=== PATIENT | female | born 1980 | race Caucasian/White ===

== ENCOUNTER 2018-10-02 00:53 | Emergency (ER) | payer OTHER ==
[2018-10-02] MEDS ORDERED: IPRATROPIUM/ALBUTEROL 3 ML NEB INH STA (01:08)
[2018-10-02] MEDS ORDERED: IBUPROFEN 800 MG TABLET PO STA (01:09)
--- NOTE | 2018-10-02 01:47 | ED Physician Documentation ---
PD HPI DYSPNEA - Stated complaint Stated Complaint: SOA - Chief complaint Chief Complaint: Resp - History obtained from History obtained from: Patient, Family () - History of Present Illness Timing - onset: How many hours ago (4) Timing - details: Waxing and waning Inciting event(s): Immobilization/travel Worsened by: Coughing Associated symptoms: Cough Similar symptoms before: Diagnosis (h/o asthma.) - Treatment prior to arrival Treatment prior to arrival: Albuterol inhaler helped temporarily. - Additional information Additional information: The patient is a 37-year-old female with history of asthma, who presents complaining of difficulty breathing. Her symptoms started 4 hours prior to arrival while on an airplane flight from [place]. She used albuterol inhaler which provided temporary relief, but her symptoms returned while driving from the airport to the [facility]. Her symptoms are exacerbated by coughing. She denies chest pain or fever. Review of Systems Constitutional: denies: Fever Throat: denies: Sore throat Cardiac: denies: Chest pain / pressure Respiratory: reports: Dyspnea, Cough GI: denies: Abdominal Pain, Nausea, Vomiting : denies: Dysuria Skin: denies: Rash Musculoskeletal: denies: Back pain, Extremity pain Neurologic: reports: Headache. denies: Focal weakness, Numbness PD PAST MEDICAL HISTORY - Past Medical History Cardiovascular: None Respiratory: Asthma Endocrine/Autoimmune: None - Present Medications Home Medications: Ambulatory Orders Medication Instructions Recorded Confirmed Benzonatate [Tessalon Perle] 100 - 200 mg PO TID PRN #20 capsule 10/02/18 Modafinil [Provigil] 100 mg PO QDLUNCH 10/02/18 10/02/18 Modafinil [Provigil] 200 mg PO QDBREAKFAST 10/02/18 10/02/18 - Allergies Allergies/Adverse Reactions: Allergies Allergy/AdvReac Type Severity Reaction Status Date / Time Iodinated Contrast- Oral and Allergy Anaphylaxis Verified 10/02/18 02:31 IV Dye Iodine and Iodide Containing Allergy Anaphylaxis Verified 10/02/18 02:32 Produc shellfish Allergy Anaphylaxis Uncoded 10/02/18 02:28 walnut Allergy Anaphylaxis Uncoded 10/02/18 02:28 PD ED PE NORMAL - Vitals Vital signs reviewed: Yes (Initially tachycardic.) - General General: Alert and oriented X 3, Well developed/nourished, Other (Coughing and tearful.) - HEENT HEENT: Atraumatic, Pharynx benign - Neck Neck: No adenopathy, No JVD - Cardiac Cardiac: No murmur, Other (Rapid rate, regular rhythm.) - Respiratory Respiratory: Other (Breath sounds are diminished on the left compared to the right. Faint wheezing noted.) - Abdomen Abdomen: Soft, Non tender - Back Back: No CVA TTP - Derm Derm: No rash - Extremities Extremities: No edema, No calf tenderness / cord - Neuro Neuro: Alert and oriented X 3, Normal speech Results - Vitals Vitals: Vital Signs - 24 hr 10/02/18 10/02/18 10/02/18 01:19 01:33 02:43 Temperature 36.9 C Heart Rate 112 H 123 H 99 Respiratory 22 30 H 18 Rate Blood Pressure 147/82 H 121/82 H O2 Saturation 100 97 Oxygen O2 Source Room air - Labs Labs: Laboratory Tests 10/02/18 01:15 D-Dimer < 200.0 L - Rads (name of study) CXR Radiology: Prelim report reviewed, EMP read contemporaneously, See rad report (No acute abnormality seen in the chest.) PD MEDICAL DECISION MAKING - ED course Complexity details: reviewed results, re-evaluated patient, considered differential, d/w patient, d/w family ED course: The patient's presentation is most consistent with bronchospasm. Her presentation does not suggest pneumonia, and her chest x-ray reveals no acute abnormality. There is no evidence of pneumothorax. Pulmonary embolus is unlikely with a normal d-dimer. Treatment in the emergency department included administration of DuoNeb nebulizer, which improved the patient's symptoms. Ibuprofen 800 mg was administered orally. She continued to complain of headache, so Vicodin 1 tablet was administered orally. She is being discharged with prescription for Tessalon Perles. I discussed with her and her the results of her workup, symptomatic treatment and outpatient follow-up, as well as potentially worrisome signs or symptoms that should prompt reevaluation in the emergency department. Departure - Departure Disposition: 01 Home, Self Care Clinical Impression: Dyspnea Qualifiers: Dyspnea type: shortness of breath Qualified Code(s): R06.02 - Shortness of breath Condition: Stable Instructions: ED Dyspnea Shortness of Breath Follow-Up: PETER Melgar [Provider Group] Prescriptions: Benzonatate [Tessalon Perle] 100 - 200 mg PO TID PRN #20 capsule PRN Reason: Cough Comments: Use your albuterol inhaler as previously prescribed. You can use Tessalon Perles as prescribed if needed for cough. Follow-up with your primary physician within 1 week. Call to schedule an appointment. Return to the emergency department if you develop increasing difficulty breathing, or otherwise worsening symptoms.
--- NOTE | 2018-10-02 02:05 | XRAY Report ---
Reason: dyspnea Procedure Date: 10/02/2018 Accession Number: [id number] / [id number] Procedure: XR - Chest 2 View X-Ray CPT Code: 51778 FULL RESULT: EXAM: CHEST RADIOGRAPHY EXAM DATE: 10/02/2018 01:58 AM. CLINICAL HISTORY: Dyspnea. COMPARISON: None. TECHNIQUE: 2 views. FINDINGS: Lungs/Pleura: No alveolar consolidation or pleural effusion seen. No pneumothorax. Mediastinum: Heart and mediastinal contours are unremarkable. Other: Status post cholecystectomy. IMPRESSION: 1. No acute abnormality seen in the chest. RADIA
[2018-10-02] MEDS ORDERED: HYDROcod/ACETAM 5/325 MG TABLET PO STA (02:18)
[2018-10-02 02:44] VITALS: BP 121/82
== END 2018-10-02 02:55 | disposition home or self-care (01) ==
LOC: ED 00:53
DX: R06.02 Shortness of breath (principal)
CPT/HCPCS: 71046; 85379; 94640; 94664; 99283; A9270

== ENCOUNTER 2022-11-24 07:35 | Outpatient (CLI) | payer OTHER ==
--- NOTE | 2022-11-24 10:19 | Mammography Report ---
UNILATERAL RIGHT DIGITAL DIAGNOSTIC MAMMOGRAM 3D/2D WITH SPOT COMPRESSION: 11/24/2022 CLINICAL: Palpable right breast lump. Comparison is made to exam dated: 08/11/2022 mammogram - [facility]. The right breast is heterogeneously dense, which may obscure small masses (category c / 51-75% glandu lar tissue). There is a stable focal asymmetry in the right breast at 12 o'clock anterior depth. This is adjacent to the palpable marker. No other significant masses or calcifications are seen in the breast. IMPRESSION: INCOMPLETE: NEEDS ADDITIONAL IMAGING EVALUATION The stable focal asymmetry in the right breast is indeterminate. An ultrasound is recommended. Based on the Tyrer Cuzick model (a risk assessment model) the patients lifetime risk is 11.3% and he r 10 year risk is 1.7%. According to the ACR, ACS, and NCCN guidelines, an annual breast MRI exam tahir ng with mammogram is recommended if the patients lifetime risk is 20% or greater. This exam was interpreted at Station ID: [id number]. NOTE: For mammograms, a report in lay terms will be sent to the patient. Approximately 15% of breast malignancies will not be visualized mammographically. In the management of a palpable breast mass, a negative mammogram must not discourage biopsy of a clinically suspicious lesion. Electronically Signed By: Nestor Samuels M.D. lc/:11/24/2022 09:27:26 ACR BI-RADS Category 0: Incomplete 3340F PARENCHYMAL PATTERN: (D) - The breast(s) demonstrate(s) heterogeneously dense fibroglandular parmailey ma. BI-RADS CATEGORY: (0) - 0 Ultrasound [id number] Immediate follow-up LATERALITY: (B)
--- NOTE | 2022-11-24 10:19 | Ultrasound Report ---
LIMITED ULTRASOUND OF RIGHT BREAST: 11/24/2022 CLINICAL: Palpable right breast lump. Comparison is made to exams dated: 11/24/2022 mammogram - and 08/11/2022 m ammogram - [facility]. Color flow ultrasound of the right breast 12 o'clock region was performed. Catherine scale images of the real-time examination were reviewed. No significant abnormalities were seen sonographically in the right breast. IMPRESSION: PROBABLY BENIGN There is no sonographic abnormality seen in the right breast to correspond with the area of clinical concern at 12:00 4cm from the nipple and the stable focal asymmetry on mammography. The focal asymmetry on mammography is probably benign, stable compared to 08/11/2022, seen adjacent to the palpable marker. A 6 month mammogram is recommended for followup. Patient was advised that she can return sooner than 6months for re-evaluation if the palpable area of clinical concern becomes larger or otherwise more symptomatic. This exam was interpreted at Station ID: [id number]. Electronically Signed By: Nestor Samuels M.D. lc/:11/24/2022 09:30:47 Ultrasound BI-RADS: 3 Probably benign BI-RADS CATEGORY: (3) - 3 Mammogram [id number] 6 month follow-up LATERALITY: (B)
== END 2022-11-24 07:36 | disposition home or self-care (01) ==
LOC: DI 07:35
PROVIDERS: ATTEND Nurse Practitioner Family
DX: R92.8 Other abnormal and inconclusive findings on diagnostic imaging of breast (principal); N64.4 Mastodynia; N63.15 Unspecified lump in the right breast, overlapping quadrants; Z80.3 Family history of malignant neoplasm of breast

== ENCOUNTER 2023-06-13 11:58 | Outpatient (CLI) | payer OTHER ==
--- NOTE | 2023-06-14 12:09 | Ultrasound Report ---
LIMITED ULTRASOUND OF RIGHT BREAST: 06/13/2023 CLINICAL: Patient returns for a 6 month follow up of the right breast. Comparison is made to exams dated: 06/13/2023 mammogram, 11/24/2022 ultrasound, 11/24/2022 mammogram - [facility], and 08/11/2022 mammogram - [facility]. Color flow ultrasound of the right breast 12 o'clock region was performed. Catherine scale images of the real-time examination were reviewed. IMPRESSION: PROBABLY BENIGN There is no abnormality seen in the right breast to correspond with the mammography finding. A follow-up mammogram in 6 months is recommended to demonstrate stability. This exam was interpreted at Station ID: [id number]. Electronically Signed By: Nestor Samuels M.D. lc/:06/13/2023 13:28:50 Ultrasound BI-RADS: 3 Probably benign BI-RADS CATEGORY: (3) - 3 Mammogram [id number] 6 month follow-up LATERALITY: (B)
--- NOTE | 2023-06-14 12:09 | Mammography Report ---
BILATERAL DIGITAL DIAGNOSTIC MAMMOGRAM 3D/2D: 06/13/2023 CLINICAL: Patient returns for a 6 month follow up of the right breast, due for bilateral exam. Comparison is made to exams dated: 11/24/2022 mammogram - [facility] and 08/11/2022 m ammogram - [facility]. Both breasts are heterogeneously dense, which may obscure small masses (category c / 51-75% glandular tissue). There is a stable focal asymmetry in the right breast at 12 o'clock anterior depth. This was not see n on the prior ultrasound. No other significant masses, calcifications, or other findings are seen in either breast. IMPRESSION: INCOMPLETE: NEEDS ADDITIONAL IMAGING EVALUATION The stable focal asymmetry in the right breast is indeterminate. An ultrasound is recommended. Based on the Tyrer Cuzick model (a risk assessment model) the patients lifetime risk is 11.9% and he r 10 year risk is 1.9%. According to the ACR, ACS, and NCCN guidelines, an annual breast MRI exam tahir ng with mammogram is recommended if the patients lifetime risk is 20% or greater. This exam was interpreted at Station ID: [id number]. NOTE: For mammograms, a report in lay terms will be sent to the patient. Approximately 15% of breast malignancies will not be visualized mammographically. In the management of a palpable breast mass, a negative mammogram must not discourage biopsy of a clinically suspicious lesion. Electronically Signed By: Nestor Sameuls M.D. lc/:06/13/2023 13:28:18 ACR BI-RADS Category 0: Incomplete 3340F PARENCHYMAL PATTERN: (D) - The breast(s) demonstrate(s) heterogeneously dense fibroglandular parmailey rober. BI-RADS CATEGORY: (0) - 0 Ultrasound [id number] Immediate follow-up LATERALITY: (B)
== END 2023-06-13 11:59 | disposition home or self-care (01) ==
LOC: DI 11:58
PROVIDERS: ATTEND Surgery
DX: R92.8 Other abnormal and inconclusive findings on diagnostic imaging of breast (principal)